=== PATIENT | female | born 1975 | race Hispanic/Latino ===

== ENCOUNTER 2017-08-23 06:19 | Day surgery (SDC) | payer BC ==
[~2017-08-23] VITALS: Ht 149.9 cm; Wt 64.0 kg
[~2017-08-23 06:19] MED LIST: DEPO-PROVER150 MG/ML IM; LEVOTHYROXIN50 MCG PO; LORTAB 7.57.5 MG/TAB OR; NO; SYNTHROID; TYLENOL; TYLENOL OR
[2017-08-23 07:47] VITALS: BP 114/73
== END 2017-08-23 08:23 | disposition home or self-care (01) | DRG 395 ==
LOC: ENDO 06:19 → ORM 08:45
PROVIDERS: ATTEND Surgery
PROC: 0DJD8ZZ Inspection of Lower Intestinal Tract, Via Natural or Artificial Opening Endoscopic (ICD-10-PCS; principal; 2017-08-23)
DX: K64.1 Second degree hemorrhoids (principal)

== ENCOUNTER 2020-05-05 07:09 | Emergency (ER) | payer BC ==
[~2020-05-05] VITALS: Ht 149.9 cm; Wt 65.9 kg
[2020-05-05 08:12] LABS: URINE BILIRUBIN - DIPSTICK NEGATIVE (NEGATIVE); URINE BLOOD DIPSTICK LARGE (NEGATIVE); URINE COLOR YELLOW; URINE GLUCOSE - DIPSTICK NEGATIVE (NEGATIVE); URINE KETONE NEGATIVE (NEGATIVE); URINE LEUK ESTERASE NEGATIVE (NEGATIVE); URINE NITRITE - DIPSTICK NEGATIVE (Negative); URINE PH 7.5 (4.5-8.0); URINE PROTEIN - DIPSTICK NEGATIVE (NEG-TRACE); URINE SPECIFIC GRAVITY 1.015; URINE UROBILINOGEN - DIPSTICK 0.2 E.U./dL (0.2)
[2020-05-05] MEDS ORDERED: IBUPROFEN600 MG PO ×2 (09:20→09:51)
[2020-05-05 09:27] VITALS: BP 118/69
== END 2020-05-05 09:34 | disposition home or self-care (01) | DRG 556 ==
LOC: ED 07:09
PROVIDERS: Student in an Organized Health Care Education/Training Program
DX: M25.551 Pain in right hip (principal)